=== PATIENT | male | born 1980 | race Caucasian/White ===

== ENCOUNTER → 2017-05-02 | Outpatient (CLI) | payer SELFPAY ==
[~2017-05-02] MED LIST: BACTRIM DS 8001 TA1 PO; CIPRO500 MG PO; NKHM
[2017-05-03 08:12] LABS: HEPATITIS B SURFACE AG Negative (Negative); HEPATITIS C VIRUS ANTIBODY <0.1 s/co (0.0-0.9); HIV 1+2 AB + HIV1 P24 AG Non Reactive (Non Reactive)
== END | disposition home or self-care (01) ==
LOC: RESCLI 08:33 → LAB 08:33
PROVIDERS: Family Medicine
DX: Z11.1 Encounter for screening for respiratory tuberculosis (principal); Z11.4 Encounter for screening for human immunodeficiency virus [HIV]

== ENCOUNTER 2020-02-26 09:27 | Emergency (ER) | payer OTHER ==
[~2020-02-26] VITALS: Ht 182.8 cm; Wt 88.5 kg
[2020-02-26] MEDS ORDERED: MIRALAX119 GM PO (12:00)
[2020-02-26] MEDS ORDERED: THORAZINE25 MG PO (12:00)
== END 2020-02-26 12:46 | disposition home or self-care (01) ==
LOC: ED 09:27
DX: K59.00 Constipation, unspecified (principal); R06.6 Hiccough; R09.89 Other specified symptoms and signs involving the circulatory and respiratory systems; J02.9 Acute pharyngitis, unspecified